=== PATIENT | male | born 1940 | race Caucasian/White ===

== ENCOUNTER 2018-06-23 12:22 | Inpatient (IN) | payer MEDICARE, OTHER ==
[2018-06-23 13:26] LABS: #Eosinphils 0.1 thou/uL (0.0-0.7); #Lymphocytes 1.2 thou/uL (1.20-3.40); #Monocytes 0.7 thou/uL (0.11-0.59); #Neutrophils 7.9 thou/uL (1.40-6.50); %Basophils 0.4 % (0.0-1.0); %Eosinophils 0.5 % (0.0-10.0); %Lymphocytes 12.4 % (21.0-51.0); %Monocytes 7.1 % (0.0-10.0); %Neutrophils 79.6 % (42.0-75.0); Hemoglobin 13.8 g/dL (14.0-18.0); Mean Corpuscular HGB CONC 33.3 g/dL (32.0-36.0); Mean Corpuscular Hemoglobin 30.3 pg (27.0-31.0); Mean Corpuscular Volume 91.2 fL (78.0-98.0); Mean Platelet Volume 7.4 fL (7.4-10.4); Platelet Count 266 thou/uL (130-400); Red Blood Cell (RBC) Count 4.55 mill/uL (4.70-6.10); White Blood Cell (WBC) Count 9.9 thou/uL (4.8-10.8)
[2018-06-23] MEDS ORDERED: hydrALAZINE 20 MG/ML VIAL ONE (13:36)
[2018-06-23] MEDS ORDERED: hydrALAZINE 25 MG TAB PO SCH (13:45)
[2018-06-23 13:47] LABS: ALT (SGPT) 26 U/L (8-55); AST (SGOT) 16 U/L (5-34); Albumin 4.4 g/dL (3.4-4.8); Alkaline Phosphatase 69 U/L (40-150); Anion Gap 14 mmol/L (10-20); BUN (Urea Nitrogen) 24 mg/dL (8.4-25.7); Bilirubin, Total 0.8 mg/dL (0.2-1.2); Calc. Creatinine Clearance 0 mL/min (70-130); Calcium 10.4 mg/dL (7.8-10.44); Carbon Dioxide 29 mmol/L (23-31); Chloride 102 mmol/L (98-107); Estimated GFR-MDRD 44; Globulin 3.1 g/dL (2.4-3.5); Glucose 211 mg/dL (83-110); Potassium 3.7 mmol/L (3.5-5.1); Protein, Total 7.5 g/dL (5.8-8.1); Sodium 141 mmol/L (136-145)
[2018-06-23] MEDS ORDERED: Ketorolac Tromethamine 30 MG/ML VIAL ONE (14:40)
--- NOTE | 2018-06-23 14:48 | RAD ---
SINGLE VIEW CHEST: Date: 06/23/18 COMPARISON: 11/04/14. HISTORY: Fall from standing with right-sided rib pain. FINDINGS: Single view of the chest shows a normal sized cardiomediastinal silhouette. There is no evidence of c onsolidation, mass, or pleural effusion. The bones are unremarkable. IMPRESSION: No evidence of acute cardiopulmonary disease. POS: [facility]
--- NOTE | 2018-06-23 15:02 | CT ---
BRAIN CT WITHOUT IV CONTRAST: Date: 06/23/18 HISTORY: 78-year-old male with history of prior stroke, with right-sided weakness and balance issues, with inj ury from a fall, with right-sided rib pain. COMPARISON: 11/04/14. FINDINGS: No focal mass or midline shift. No intra or extra-axial hemorrhage. Small, punctate, old right latera l basal ganglia lacunar infarct. Sinuses and mastoids are clear. IMPRESSION: Mid atrophy and chronic white matter ischemic changes. Tiny stable right basal ganglia lacunar infarc t. No change from prior exam. POS: [facility]
[2018-06-23 15:43] LABS: Troponin I 0.038 ng/mL (< 0.028)
[2018-06-23] MEDS ORDERED: Morphine 2 MG/ML SYRINGE ONE (16:41)
[2018-06-23 17:42] LABS: Bilirubin Negative (Negative); Blood, Urine Negative (Negative); Clarity CLEAR (Clear); Glucose, Urine (Dipstick) Negative (Negative); Leukocyte Negative (Negative); Nitrite Negative (Negative); Protein, Urine (Dipstick) 300 mg/dL (Neg-Trace); Urobilinogen 0.2 mg/dL (0.2-1.0); pH, Urine 5.5 (5.0-9.0)
[2018-06-23 17:45] LABS: Pathc Cast-AUWi Flag 2.47 (0-2.49); RBC/HPF 0-3 HPF (0-3); Squamous Epithelial 0-3 HPF (0-3); WBC/HPF 0-3 HPF (0-3)
[2018-06-23 18:04] LABS: Bacteria/HPF Rare-Few HPF (None Seen); Yeast-All Forms None Seen HPF (None Seen)
[2018-06-23 18:57] LABS: Troponin I 0.031 ng/mL (< 0.028)
[2018-06-23] MEDS ORDERED: Acetaminophen 325 MG TAB PO PRN (19:08)
[2018-06-23] MEDS ORDERED: Ondansetron PF 4 MG/2 ML Vial IVP PRN (19:08)
[2018-06-23] MEDS ORDERED: Ondansetron ODT 4 MG TAB SL PRN (19:08)
[2018-06-23 21:13] VITALS: BMI 23.2
[2018-06-23 21:47] LABS: Troponin I 0.038 ng/mL (< 0.028)
[2018-06-24] MEDS ORDERED: Ondansetron ODT 4 MG TAB PO PRN (05:13)
[2018-06-24] MEDS ORDERED: traMADol HCl 50 MG TAB PO PRN (05:13)
[2018-06-24] MEDS ORDERED: HumaLOG 300 UNITS/3 ML VIAL SC PRN (05:13)
[2018-06-24] MEDS ORDERED: Acetaminophen 500 MG TAB PO PRN (05:13)
[2018-06-24] MEDS ORDERED: Ondansetron PF 4 MG/2 ML Vial IVP PRN (05:13)
[2018-06-24] MEDS ORDERED: Clotrimazole/Betamethasone Cream 45 GM TUBE TOP PRN (05:13)
[2018-06-24] MEDS ORDERED: hydrALAZINE 20 MG/ML VIAL SLOW IVP PRN (05:13)
[2018-06-24] MEDS ORDERED: Dextrose 50% Abboject 50 ML SYRINGE SLOW IVP PRN (05:13)
[2018-06-24] MEDS ORDERED: Dextrose 5% in Water 1,000 ML IV PRN (05:13)
[2018-06-24] MEDS: HumaLOG 300 UNITS/3 ML VIAL SC PRN ×2 (05:47→17:31)
[2018-06-24] MEDS: metFORMIN 500 MG TAB PO SCH ×2 (07:53→16:31)
[2018-06-24] MEDS: glipiZIDE 10 MG TAB PO SCH ×2 (07:53→16:31)
[2018-06-24] MEDS ORDERED: Regadenoson 0.4 MG/5 ML SYRINGE ONE (08:02)
[2018-06-24] MEDS: hydrALAZINE 25 MG TAB PO SCH ×3 (13:41→21:28)
[2018-06-24] MEDS: Amlodipine 10 MG TAB PO SCH (14:53)
[2018-06-24] MEDS: Famotidine 20 MG TAB PO SCH (14:53)
[2018-06-24] MEDS: Atorvastatin Calcium 10 MG TAB PO SCH (14:54)
[2018-06-24] MEDS: Aggrenox 200-25mg CAP PO SCH ×2 (14:55→21:28)
[2018-06-24] MEDS: Sodium Chloride 0.9% 1,000 ML IV SCH (15:45)
--- NOTE | 2018-06-24 16:05 | NM ---
RADIONUCLIDE STRESS REST MYOCARDIAL PERFUSION SCAN WITH CT ATTENUATION CORRECTION AND SPECT IMAGING LEFT VENTRICULAR WALL MOTION EVALUATION AND EJECTION FRACTION 06/24/18 HISTORY: Chest pain. FINDINGS: Lexiscan protocol. There is heterogeneous uptake of radiotracer throughout the left ventricular myoca rdium. No focal perfusion defect or reversibility. QGS analysis with gated SPECT images shows no focal wall motion abnormalities. Global hypokinesis. Ej ection fraction calculated at 53%. IMPRESSION: Normal myocardial perfusion scan. No evidence of ischemia. Global hypokinesis. Borderline ejection fracture of 53%. POS: [facility]
[2018-06-24] MEDS: Donepezil HCl 10 MG TAB PO SCH (21:28)
[2018-06-24] MEDS: Tamsulosin HCl 0.4 MG CAP PO SCH (21:28)
--- NOTE | 2018-06-24 22:22 | HP ---
PRIMARY CARE PHYSICIAN: Dr. Franco. CHIEF COMPLAINT: Chest pain following a fall at home. HISTORY OF PRESENT ILLNESS: The patient has a past medical history of a CVA with some right-sided deficits. The patient reports some balance issues and had some right sided rib pain after he fell, reports it was a mechanical fall and did not lose consciousness. Denies any headache. Denies any chest pain or shortness of breath. Family reports the patient has had increasing weakness and gait instability, which is likely from his chronic residual weakness from his prior CVA. The head CT had no acute findings. He had a mildly increased troponin. Given the overall fatigue and malaise, patient will be admitted for acute coronary syndrome rule out. PAST MEDICAL HISTORY: Includes CVA in 10/2014, he has some residual right- sided weakness. He uses a cane for balance. Has a history of diabetes, hyperlipidemia, and hypertension. PAST SURGICAL HISTORY: Had a hernia repair in 04/2014 and had a detached retina repair in his left eye. SOCIAL HISTORY: Denies any alcohol or drug use. The patient has no smoking history. HOME MEDICATIONS: Include Aggrenox 25-200 mg 1 tab p.o. b.i.d., Lipitor 10 mg p.o. daily, Lotrisone cream 1 application topical b.i.d. as needed, Aricept 10 mg p.o. at bedtime, Glucotrol 10 mg p.o. b.i.d., metformin 1000 mg p.o. b.i.d., metoprolol 100 mg p.o. daily, Flomax 0.4 mg at bedtime, tramadol 50 mg 3 times a day as needed, Norvasc 10 mg p.o. daily, and Apresoline 50 mg p.o. t.i.d. REVIEW OF SYSTEMS: Constitutional: The patient denies any fever or chills. Eyes: Denies any eye pain, changes to vision, discharge or vision changes. ENT : The patient denies any rhinorrhea or sore throat. Cardiovascular: The patient does report chest pain to the right chest, worse with inspiration or palpitation. Respiratory: Denies any cough, shortness of breath. Gastrointestinal: Denies any abdominal pain, constipation, diarrhea, nausea, vomiting. Genitourinary: Male. Denies any dysuria or hematuria. Musculoskeletal: Denies any new back pain. Reports a fall yesterday. Denies any major injury. Reports some chest wall pain on palpation. Denies any neck pain. Skin: Denies any skin changes. Neurologic: Reports some worsening gait changes. Denies headache, worsening gait instability. Lymphatic: Denies any abnormal blood clotting. PHYSICAL EXAMINATION: VITAL SIGNS: Blood pressure 164/73, pulse is 80, respirations 18, pulse ox is 98 on room air temperature is at 98.3. CONSTITUTIONAL: Vital signs as above. HEENT: Normocephalic, atraumatic. Eyes: Eyelids normal to inspection. Pupils are equally round and reactive. Extraocular muscles intact. ENT: Mucous membranes are moist. Teeth normal. NECK: Normal range of motion. Trachea is midline. RESPIRATORY/CHEST: No respiratory distress. Breath sounds are equal. Moderate tenderness to the right posterior chest. CARDIOVASCULAR: Regular rate and rhythm. S1, S2. Heart sounds are normal. ABDOMEN: Male. Abdomen is nontender. Bowel sounds are normal. BACK: Normal range of motion, no tenderness. EXTREMITIES: Upper extremity, normal range of motion. Sensation intact. Radial pulse is normal. Lower extremity, range of motion is normal, pulse and sensation intact. SKIN: Dry, normal in color. LABORATORY DATA: White blood cell count is 9.9, hemoglobin is 13.8, hematocrit is 41.5. Sodium 141, potassium 3.7, chloride 102, carbon dioxide is 29, anion gap is 14, BUN is 24, creatinine is 1.52, glucose 211. Troponins x3 have been slightly elevated at 0.038, 0.031 and then again 0.038. Urine not indicative of a UTI. Chest x-ray, no evidence of acute process. Brain CT performed yesterday shows mild atrophy and chronic white matter ischemic changes, tiny stable right basal ganglia lacunar infarct. No change from prior exam. EKG normal sinus rhythm, beats per minute 66, first degree AV block. T waves are inverted in the lateral leads, nonspecific EKG. IMPRESSION AND PLAN: 1. Weakness. We will do a stress and an echo. Check I's and O's. Check orthostatic vital signs. Give gentle fluid bolus. Check lab values in the morning. 2. Diabetes type 2. We will resume home medications. We will give sliding scale as needed for coverage. 3. Hyperlipidemia. We will continue home medications. 4. Hypertension. We will continue home medications. Hospital stay will depend on clinical course. MTDD
[2018-06-25] MEDS: Sodium Chloride 0.9% 1,000 ML IV SCH ×3 (02:02→20:57)
[2018-06-25 06:35] LABS: Band 3 % (5-11); Eosinophils 1 % (0-10); Hemoglobin 12.4 g/dL (14.0-18.0); Lymphocytes 15 % (21-51); MDiff Complete? YES; Mean Corpuscular HGB CONC 33.1 g/dL (32.0-36.0); Mean Corpuscular Hemoglobin 30.5 pg (27.0-31.0); Mean Corpuscular Volume 92.1 fL (78.0-98.0); Mean Platelet Volume 7.2 fL (7.4-10.4); Monocytes 7 % (0-10); Neutrophil 74 % (42-75); Platelet Count 216 thou/uL (130-400); RBC Distribution Width 12.8 % (11.5-14.5); Red Blood Cell (RBC) Count 4.06 mill/uL (4.70-6.10)
[2018-06-25 06:40] LABS: Anion Gap 10 mmol/L (10-20); BUN (Urea Nitrogen) 18 mg/dL (8.4-25.7); Calc. Creatinine Clearance 59 mL/min (70-130); Calcium 8.7 mg/dL (7.8-10.44); Carbon Dioxide 28 mmol/L (23-31); Chloride 105 mmol/L (98-107); Estimated GFR-MDRD 66; Glucose 173 mg/dL (83-110); Potassium 3.8 mmol/L (3.5-5.1); Sodium 139 mmol/L (136-145)
[2018-06-25] MEDS: Amlodipine 10 MG TAB PO SCH (09:25)
[2018-06-25] MEDS: metFORMIN 500 MG TAB PO SCH ×2 (09:25→17:36)
[2018-06-25] MEDS: glipiZIDE 10 MG TAB PO SCH ×2 (09:25→17:35)
[2018-06-25] MEDS: Famotidine 20 MG TAB PO SCH (09:26)
[2018-06-25] MEDS: hydrALAZINE 25 MG TAB PO SCH ×3 (09:26→20:16)
[2018-06-25] MEDS: Atorvastatin Calcium 10 MG TAB PO SCH (09:26)
[2018-06-25] MEDS: Aggrenox 200-25mg CAP PO SCH ×2 (09:26→20:16)
[2018-06-25] MEDS ORDERED: Gadobenate Dimeglumine 529 MG/1 ML (20ML VIAL) ONE (11:02)
--- NOTE | 2018-06-25 11:20 | PDOC.PN ---
- Subjective Encounter Start Date: 06/25/18 Encounter Start Time: 08:00 -: F/u for AMS, fall, increased weakness, h/o CVA -: Increased confusion, increased weakness this morning - Objective Resuscitation Status: Resuscitation Status FULL:Full Resuscitation Vital Signs & Weight: Vital Signs (12 hours) Temp Pulse Resp BP BP Pulse Ox 06/25/18 09:26 65 06/25/18 09:25 65 06/25/18 07:24 98.3 F 65 16 177/86 H 98 06/25/18 04:47 98.1 F 66 20 146/65 H 100 06/24/18 23:38 98.7 F 80 16 169/75 H 95 Weight Weight 75.523 kg I&O: 06/24/18 06/25/18 06/26/18 06:59 06:59 06:59 Intake Total 240 1675 Output Total 300 Balance 240 1375 Result Diagrams: 06/25/18 06:05 06/25/18 06:05 Additional Labs: Accuchecks 06/25/18 06/24/18 06/24/18 06:24 20:52 16:54 POC Glucose 166 H 126 H 213 H 06/24/18 13:58 POC Glucose 132 H Phys Exam - Physical Examination HEENT: PERRLA, moist MMs Neck: no nodes, no JVD, supple Respiratory: wheezing present, clear to auscultation bilateral Cardiovascular: RRR, no significant murmur Gastrointestinal: soft, non-tender Musculoskeletal: no edema, pulses present Neurological: non-focal, moves all 4 limbs Psychiatric: normal affect, A&O x 3 Skin: no rash Dx/Plan (1) Ataxia Code(s): R27.0 - ATAXIA, UNSPECIFIED Status: Acute (2) Diabetes Mellitus Type 2 in Nonobese Code(s): E11.9 - TYPE 2 DIABETES MELLITUS WITHOUT COMPLICATIONS Status: Chronic (3) Labile hypertension Code(s): I10 - ESSENTIAL (PRIMARY) HYPERTENSION Status: Chronic (4) TIA (transient ischemic attack) Status: Acute - Plan -: Patient with increased weakness/confusion this am -: Ordered MRI, neuro consult, UA and UC. -: CM has been consulted for Rehab placement, family agrees. -: Will monitor * .
--- NOTE | 2018-06-25 14:47 | CON ---
DATE OF CONSULTATION: 06/25/2018 CONSULTING PHYSICIAN: Hospitalist Service. IMPRESSION: 1. Nonspecific weakness. 2. Past history of stroke with some right-sided weakness. 3. Diabetes. 4. Hypertension. PLAN: MRI of the brain to determine whether there have been any acute ischemic changes. Mr. Reina is a 78-year-old gentleman, who apparently has a past history of stroke with some residual right-sided weakness, balance difficulties, and requiring use of a cane; diabetes; hyperlipidemia; a nd hypertension. Family reportedly saw some worsening difficulty with his mobility. He was brought into the emergency room for further evaluation. Initial CT scan of the brain showed small vessel isc hemic changes, but no acute hemorrhage. His laboratory studies were unremarkable including a CBC and chemistry panel. Otherwise, his EKG showed a normal sinus rhythm with a rate of 66 and first-degree AV block. Cardiology has been consulted. PAST MEDICAL HISTORY: As noted above. ALLERGIES: None reported. SOCIAL HISTORY: Otherwise, he denies any tobacco or alcohol use. FAMILY HISTORY: Noncontributory. REVIEW OF SYSTEMS: No complaint of headache, nausea, vomiting, vertigo, lightheadedness, alteration of consciousness, lateralized weakness or numbness. PHYSICAL EXAMINATION: GENERAL: He is a well-nourished elderly man, who is lying in bed with his eyes closed. HEENT: Pupils are equal and reactive. Conjunctivae clear. Oropharynx clear. NECK: Supple. EXTREMITIES: No cyanosis. NEUROLOGIC EXAM: He would awaken, though he tended to keep his eyes closed. I could get him to foll ow commands in appropriate fashion. When asked why he tended to keep his eyes closed, he reported th at he was sleepy. There was no dysarthria present. There was some subtle right-sided facial droop. [employer] strength seemed equal. He had antigravity strength in all 4 extremities. Sensation was symmet willie. Plantar responses were downgoing bilaterally. No abnormal movements were seen. VITAL SIGNS: Stable. He has been afebrile since admission. SUMMARY: Elderly man with some nonspecific decline in his gait and his exam, thus far, has been unre markable. I would proceed with an MRI to rule out anything acute. Otherwise, physical therapy evalu ation and possible rehabilitation transfer may be of value.
[2018-06-25] MEDS: HumaLOG 300 UNITS/3 ML VIAL SC PRN (15:08)
--- NOTE | 2018-06-25 15:16 | MRI ---
MRI BRAIN WITH AND WITHOUT CONTRAST: Date: 06/25/18 Multiplanar, multisequential imaging obtained. Postcontrast imaging obtained with administration of M ultiHance IV. INDICATION: Mental status change. History of CVA. FINDINGS: There is cortical atrophy. Associated ventriculomegaly. Moderate chronic ischemic white matter change . There is a small focus of restricted diffusion in the left thalamus consistent with a lacunar infar ct. No evidence of cortical infarct. No mass or edema. The intracranial internal carotid arteries show flow-voids. Basilar artery and proximal cerebral meliza betty show flow-voids. On postcontrast images, there is no abnormal enhancement. IMPRESSION: 1. Evidence of acute lacunar infarct in the left thalamus. 2. Moderately severe chronic ischemic white matter change with cortical atrophy. POS: [facility]
[2018-06-25 17:21] LABS: Bilirubin Negative (Negative); Blood, Urine Negative (Negative); Clarity CLEAR (Clear); Glucose, Urine (Dipstick) 100 mg/dL (Negative); Leukocyte Negative (Negative); Nitrite Negative (Negative); Protein, Urine (Dipstick) 300 mg/dL (Neg-Trace)
[2018-06-25 17:24] LABS: Bacteria/HPF None Seen HPF (None Seen); Hyaline Casts/LPF 0-3 HYALINE CAST LPF (0-3 Hyaline); Pathc Cast-AUWi Flag 0.43 (0-2.49); WBC/HPF 0-3 HPF (0-3)
[2018-06-25 17:39] LABS: RBC/HPF None Seen HPF (0-3)
--- NOTE | 2018-06-25 19:07 | ULT ---
CAROTID DUPLEX SONOGRAM: History: CVA. Vascular disease. FINDINGS: Right: Color and spectral doppler evaluation, peak systolic velocity of 89 cm/sec and IC/CC ratio of 0.9 suggests no hemodynamically significant stenosis within the extracranial right ICA. Vertebral art ricco is not well visualized. Left: Color and spectral doppler evaluation, peak systolic velocity of 103 cm/sec and IC/CC ratio of 0.9 suggests no hemodynamically significant stenosis within the extracranial left ICA. Antegrade flow within the vertebral artery. IMPRESSION: No sonographic evidence of significant extracranial ICA stenosis. POS: [facility]
[2018-06-25] MEDS: Tamsulosin HCl 0.4 MG CAP PO SCH (20:16)
[2018-06-25] MEDS: Donepezil HCl 10 MG TAB PO SCH (20:16)
[2018-06-26] MEDS: Sodium Chloride 0.9% 1,000 ML IV SCH (00:35)
[2018-06-26 04:54] LABS: Cardiac Risk 4.7 (Less than 4.5)
[2018-06-26] MEDS: glipiZIDE 10 MG TAB PO SCH (08:41)
[2018-06-26] MEDS: hydrALAZINE 25 MG TAB PO SCH (08:42)
[2018-06-26] MEDS: Atorvastatin Calcium 10 MG TAB PO SCH (08:42)
[2018-06-26] MEDS: Amlodipine 10 MG TAB PO SCH (08:42)
[2018-06-26] MEDS: Aggrenox 200-25mg CAP PO SCH (08:42)
[2018-06-26] MEDS: Famotidine 20 MG TAB PO SCH (08:42)
[2018-06-26] MEDS: metFORMIN 500 MG TAB PO SCH (08:42)
[2018-06-26 12:31] VITALS: TEMP 98.7
--- NOTE | 2018-06-26 13:34 | STRESS ---
Acquisition Time: 2018-06-24 11:11:27 Total Exercise Time: 00:01:00 Test Indications: CHEST PAIN Medications: Protocol: LEXISCAN Max HR: 088 BPM 62% of Pred: 141 BPM Max BP: 156/084 mmHG Max Work Load: 1.0 METS RESTING ECG: NORMAL SINUS RHYTHM AT 54 BPM WITH LEFT VENTRICULAR HYPERTROPHY REPOLARIZATION ABNORMALITY SYMPTOMS: DYSPNEA NORMAL BLOOD PRESSURE RESPONSE ECTOPY: NONE ECG RESPONSE: NO SIGNIFICANT CHANGES INTEPRETATION: AWAIT NUCLEAR IMAGES FOR DEFINITIVE DIAGNOSIS Confirmed by RICH CAT ([id number]), script editor AJ CAGE ([id number]) on 06/26/2018 1:34:02 PM Referred By: Kory WOODS Confirmed By:RICH CAT
[2018-06-27 08:10] VITALS: BP 159/87
== END 2018-06-26 14:22 | DRG 69 ==
LOC: ERS 12:22 → 2SW 17:25 → OBSVTOIN 06-25 15:02 → 2SE 06-25 16:20
PROVIDERS: ADMIT Internal Medicine; ATTEND Internal Medicine
DX: G45.9 Transient cerebral ischemic attack, unspecified (principal); I69.351 Hemiplegia and hemiparesis following cerebral infarction affecting right dominant side; R07.9 Chest pain, unspecified; R41.82 Altered mental status, unspecified; E11.9 Type 2 diabetes mellitus without complications; R27.0 Ataxia, unspecified; E78.5 Hyperlipidemia, unspecified; I10 Essential (primary) hypertension; I44.0 Atrioventricular block, first degree; Z79.84 Long term (current) use of oral hypoglycemic drugs; W19.XXXA Unspecified fall, initial encounter; Y92.009 Unspecified place in unspecified non-institutional (private) residence as the place of occurrence of the external cause
CPT/HCPCS: 36415; 36416; 70450; 70553; 71045; 78452; 80048; 80053; 80061; 81003; 81015; 84484; 85007; 85025; 85027; 87086; 93005; 93017; 93306; 93880; 96374; 96375; A9500; A9579; G8978-GP-CJ; G8979-GP-CI; G8987-GO-CJ; G8988-GO-CI; G8996-GN-CH; G8997-GN-CH; J0360; J1885; J2270; J2405; J2785

== ENCOUNTER 2019-04-23 19:59 | Emergency (ER) | payer MEDICARE, OTHER ==
--- NOTE | 2019-04-23 20:37 | RAD ---
XR Wrist 3 Rt View STANDARD History: Fall Comparison: None. 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 No acute fracture is appreciated. Extensive synovitis and large joint effusion of the wrist. Chondrocalcinosis of the triangular fibrocartilage. Fragmentation of the lateral margin of the lunate. Impression: 1. No acute fracture. 2. 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 3. Dorsal edema of the wrist suggesting contusion as well as wrist joint effusion and synovitis.
== END 2019-04-23 21:28 | disposition home or self-care (01) ==
LOC: ERS 19:59
DX: S60.211A Contusion of right wrist, initial encounter (principal); M25.431 Effusion, right wrist; E11.9 Type 2 diabetes mellitus without complications; E78.5 Hyperlipidemia, unspecified; I10 Essential (primary) hypertension; Z86.73 Personal history of transient ischemic attack (TIA), and cerebral infarction without residual deficits; W18.30XA Fall on same level, unspecified, initial encounter
CPT/HCPCS: 29125